=== PATIENT | male | born 1945 | race Caucasian/White ===

== ENCOUNTER 2020-08-30 02:53 | Emergency (ER) | payer MEDICARE, OTHER ==
[~2020-08-30] VITALS: Ht 182.9 cm; Wt 88.5 kg
[2020-08-30] MEDS ORDERED: ATOR20 PO (03:08)
[2020-08-30] MEDS ORDERED: EUTHYROX125 MCG PO (03:09)
[2020-08-30] MEDS ORDERED: Prinivil10 MG PO (03:09)
[2020-08-30] MEDS ORDERED: HYDCHL25 PO (03:10)
[2020-08-30 03:34] LABS: BASOPHILS ABSOLUTE AUTO 0.07 K/mm3 (0.00-0.23); BASOPHILS PERCENT AUTO 1 % (0-2); EOSINOPHILS PERCENT AUTO 6 % (0-6); Hematocrit 46.5 % (37.0-53.0); Hemoglobin 15.4 g/dL (13.5-17.5); IMMATURE GRAN ABSOLUTE AUTO 0.09 K/mm3 (0.00-0.10); IMMATURE GRAN PERCENT AUTO 1 % (0-1); LYMPHOCYTES ABSOLUTE AUTO 1.17 K/mm3 (0.84-5.20); LYMPHOCYTES PERCENT AUTO 18 % (21-46); MONOCYTES ABSOLUTE AUTO 0.83 K/mm3 (0.16-1.47); MONOCYTES PERCENT AUTO 13 % (4-13); Mean Corpuscular HGB 32.4 pg (26.0-34.0); Mean Corpuscular HGB Conc 33.1 g/dL (31.5-36.5); Mean Corpuscular Volume 98 fL (80-100); NEUTROPHILS PERCENT AUTO 60 % (41-73); Platelet Count 131 K/mm3 (150-400); RDW Coefficient Variation 12.7 % (11.7-14.2); RDW Standard Deviation 45.5 fL (35.1-46.3); Red Blood Cell Count 4.75 M/mm3 (4.30-5.90); White Blood Cell Count 6.36 K/mm3 (4.00-11.30)
[2020-08-30 03:54] LABS: Alanine Aminotransfer (ALT/SGP 33 U/L (12-78); Albumin/Globulin Ratio 1.4 (0.8-1.8); Alk Phos 93 U/L (50-136); Anion Gap 5 mmol/L (6-16); Aspartate Aminotrans (AST/SGOT 18 U/L (12-37); Bilirubin, Total 0.4 mg/dL (0.1-1.0); Blood Urea Nitrogen 20 mg/dL (8-24); Bun/Creatinine Ratio 17.2 (12.0-20.0); CO2, Blood 27 mmol/L (21-32); Calcium, Blood 9.2 mg/dL (8.5-10.1); Chloride, Blood 108 mmol/L (98-108); Creatinine, Blood 1.16 mg/dL (0.60-1.20); Globulin, Blood 2.8 g/dL (2.2-4.0); Glomerular Filtration Rate >60 (60-); Glucose, Blood 120 mg/dL (70-99); Sodium, Blood 140 mmol/L (136-145); Total Protein, Blood 6.8 g/dL (6.4-8.2); Troponin I <0.015 ng/mL (0.000-0.040)
== END 2020-08-30 04:11 | disposition home or self-care (01) ==
LOC: ER 02:53
PROVIDERS: Emergency Medicine
DX: R55 Syncope and collapse (principal); S00.83XA Contusion of other part of head, initial encounter; S50.811A Abrasion of right forearm, initial encounter; I10 Essential (primary) hypertension; Z79.899 Other long term (current) drug therapy; X58.XXXA Exposure to other specified factors, initial encounter
CPT/HCPCS: 36415; 80053; 84484; 85025; 93005; 93010; J7030

== ENCOUNTER → 2020-09-03 | Outpatient (CLI) | payer MEDICARE, OTHER ==
[~2020-09-03] MED LIST: ATOR20 PO; EUTHYROX125 MCG PO; HYDCHL25 PO; Prinivil10 MG PO
== END ==
LOC: LAB SHORT 11:45
DX: L57.0 Actinic keratosis (principal)
CPT/HCPCS: 88305; 88342

== ENCOUNTER 2022-02-11 20:15 | Emergency (ER) | payer MEDICARE, OTHER ==
[~2022-02-11] VITALS: Ht 182.9 cm; Wt 88.5 kg
== END 2022-02-11 21:12 | disposition home or self-care (01) ==
LOC: ER 20:15
DX: M62.89 Other specified disorders of muscle (principal); I10 Essential (primary) hypertension; E78.5 Hyperlipidemia, unspecified
CPT/HCPCS: 99283

== ENCOUNTER 2022-04-14 06:17 | Day surgery (SDC) | payer MEDICARE, OTHER ==
[~2022-04-14] VITALS: Ht 182.9 cm; Wt 90.0 kg
[~2022-04-14 06:17] MED LIST changes: +ASPI81CH PO
--- NOTE | 2022-04-14 08:04 | NUR ---
PT AND S/O VERBALIZES UNDERSTANDING WRITTEN AND VERBAL INSTRUCTIONS. VSS. NADN. PT IV DC'D. CATH INTACT. PRESSURE DSXG APPLIED. NO BLEEDING NOTED. PT WILL DC TO HOME VIA S/O
== END 2022-04-14 22:38 | disposition home or self-care (01) ==
LOC: MHTC 06:17 → ORD 07:00 → MHTC 22:38
DX: I63.9 Cerebral infarction, unspecified (principal); I35.1 Nonrheumatic aortic (valve) insufficiency
CPT/HCPCS: 93312; 93325; A9270; J2704; J7030

== ENCOUNTER 2025-05-17 10:28 | Day surgery (SDC) | payer OTHER ==
[2025-05-17] VITALS (10 sets, daily range): BP systolic 107–145; BP diastolic 63–93
[~2025-05-17] VITALS: Ht 180.3 cm; Wt 79.3 kg
[~2025-05-17 10:28] MED LIST changes: +ATOR10 PO; -ATOR20 PO; +Acetaminophen325 M1 PO; +DECADRON4 M1 PO; +FOLI1 PO; +LEVETIRACETAM1000 M1 PO; +MELA3 PO; +ONDA8 PO; +PANT20 PO
[2025-05-17] MEDS ORDERED: CeFAZolin Sodium 2,000 MG in NS 100 ML IV SCH (11:05)
--- NOTE | 2025-05-17 11:31 | NUR ---
Ambulatory in Day SurgeryPre-Op teaching done. Pt verbalizes understanding. History, Chart, Medications and Allergies reviewed before start of procedure.Patient confirms NPO status and agrees with scheduled surgery. Patient States Post-Procedure ride home has been arranged. Patient reports completing Chlorhexadine shower X2 prior to admission to hospital.
[2025-05-17] MEDS ORDERED: LISI20 (11:39)
[2025-05-17] MEDS ORDERED: HYDCHL50 (11:39)
[2025-05-17] MEDS ORDERED: Ondansetron HCl 2 MG / ML 2ML Vial ONE (12:33)
[2025-05-17] MEDS ORDERED: Dexamethasone Sod Phos 10 MG/ML 1ML VIAL ONE (12:33)
[2025-05-17] MEDS ORDERED: FentaNYL Citrate 50 MCG/ML 2 ML Injection ONE (12:33)
[2025-05-17] MEDS ORDERED: FentaNYL Citrate 50 MCG/ML 2 ML Injection IV PRN ×3 (12:55)
[2025-05-17] MEDS ORDERED: Ondansetron HCl 2 MG / ML 2ML Vial IV PRN (13:00)
[2025-05-17] MEDS ORDERED: HYDROcodone 5-APAP 325 TAB PO PRN (13:25)
--- NOTE | 2025-05-17 14:31 | NUR ---
DISCHARGE NOTE PT A&OX4, BREATHING RA, TOLERATING PO INTAKE, NO COMPLAINTS. Patient up to Ambulate independently. Gait steady. PT TO BR AND VOIDED. Discharge instructions reviewed with patient. Patient verbalizes understanding. Copy given to patient to take home. Dressing to procedure site clean, dry, intact with no visible drainage, swelling, erythema or bruising noted. Discharged via wheelchair to private car for ride home.
== END 2025-05-17 14:25 | disposition home or self-care (01) ==
LOC: ORSCMMR 10:28
PROVIDERS: Surgery
PROC: 0JH63WZ Insertion of Totally Implantable Vascular Access Device into Chest Subcutaneous Tissue and Fascia, Percutaneous Approach (ICD-10-PCS; principal; 2025-05-17 11:30)
DX: C34.90 Malignant neoplasm of unspecified part of unspecified bronchus or lung (principal); I10 Essential (primary) hypertension; E03.9 Hypothyroidism, unspecified; Z79.899 Other long term (current) drug therapy
CPT/HCPCS: 77001; C1788; J0690; J1100; J1642; J2405; J2704; J3010; J7120

== ENCOUNTER 2025-05-28 08:31 | Emergency (ER) | payer OTHER ==
[~2025-05-28] VITALS: Ht 180.3 cm; Wt 80.3 kg
[~2025-05-28 08:31] MED LIST changes: +HYDCHL50; +LISI20
[2025-05-28] MEDS ORDERED: LISI20 PO (09:06)
[2025-05-28 09:32] LABS: Hematocrit 36.5 % (37.0-53.0); Hemoglobin 12.7 g/dL (13.5-17.5); Mean Corpuscular HGB Conc 34.8 g/dL (31.5-36.5); Mean Corpuscular Volume 92 fL (80-100); NRBC ABSOLUTE 0.00 K/mm3 (0.00-0.02); NRBC Auto 0.0 /100 WBC (0.0-0.2); RDW Coefficient Variation 12.9 % (11.7-14.2); RDW Standard Deviation 43.8 fL (35.1-46.3)
[2025-05-28 09:36] LABS: Platelet Count 49 K/mm3 (150-400)
[2025-05-28 09:44] LABS: Alanine Aminotransfer (ALT/SGP 57.0 U/L (12-78); Albumin, Blood 3.2 g/dL (3.4-5.0); Albumin/Globulin Ratio 1.2 (0.8-1.8); Anion Gap 9.0 mmol/L (3-11); Aspartate Aminotrans (AST/SGOT 19.0 U/L (12-37); Bilirubin, Total 0.7 mg/dL (0.1-1.0); Blood Urea Nitrogen 30.0 mg/dL (8-24); CO2, Blood 25.0 mmol/L (21-32); Calcium, Blood 8.9 mg/dL (8.5-10.1); Chloride, Blood 101.0 mmol/L (98-108); Creatinine, Blood 0.77 mg/dL (0.60-1.20); Globulin, Blood 2.7 g/dL (2.2-4.0); Glucose, Blood 170.0 mg/dL (70-99); Magnesium, Blood 1.8 mg/dL (1.6-2.4); Phosphorus, Blood 2.9 mg/dL (2.5-4.9); Potassium, Blood 4.3 mmol/L (3.5-5.5); Sodium, Blood 131.0 mmol/L (136-145); Total Protein, Blood 5.9 g/dL (6.4-8.2)
[2025-05-28] MEDS ORDERED: Ipratropium/Albuterol SulF 2.5-0.5MG/3 ML Amp INH ONE (09:45)
[2025-05-28 10:02] LABS: Influenza A, PCR NEGATIVE (NEGATIVE); Influenza B, PCR NEGATIVE (NEGATIVE); Resp Syncytial Virus, PCR NEGATIVE (NEGATIVE); SARS-Cov-2 (COVID-19) PCR, MMC NEGATIVE (NEGATIVE)
[2025-05-28 10:15] LABS: BAND PERCENT MAN 11 % (0-8); BASOPHILS ABSOLUTE MAN 0.00 K/mm3 (0.00-0.23); BASOPHILS PERCENT MAN 0 % (0-2); EOSINOPHILS ABSOLUTE MAN 0.02 K/mm3 (0.00-0.68); EOSINOPHILS PERCENT MAN 1 % (0-6); LYMPHOCYTES ABSOLUTE MAN 0.48 K/mm3 (0.84-5.20); LYMPHOCYTES PERCENT MAN 21 % (21-46); MONOCYTES ABSOLUTE MAN 0.06 K/mm3 (0.16-1.47); MONOCYTES PERCENT MAN 3 % (4-13); NEUTROPHILS ABSOLUTE MAN 1.74 K/mm3 (1.96-9.15); SEG NEUTROPHILS PERCENT MAN 64 % (41-73)
[2025-05-28 11:00] VITALS: BP 102/68
[2025-05-28] MEDS ORDERED: Zithromax Tri-500 MG PO (11:10)
[2025-05-28] MEDS ORDERED: ALBU90OI INH (11:10)
== END 2025-05-28 11:22 | disposition home or self-care (01) ==
LOC: ER 08:31
PROVIDERS: Student in an Organized Health Care Education/Training Program
DX: J20.9 Acute bronchitis, unspecified (principal); J06.9 Acute upper respiratory infection, unspecified; I10 Essential (primary) hypertension; E78.5 Hyperlipidemia, unspecified; Z79.899 Other long term (current) drug therapy
CPT/HCPCS: 71046; 80053; 83735; 84100; 85025; 87637; 93005; 93010; 96374; 99284-25; A9270; J2919

== ENCOUNTER 2025-06-12 15:16 | Inpatient (IN) | payer OTHER ==
[~2025-06-12] VITALS: Ht 180.3 cm; Wt 82.7 kg
[~2025-06-12 15:16] MED LIST changes: +ALBU90OI INH; -EUTHYROX125 MCG PO; -HYDCHL25 PO; +LEVSOD150 PO; +LISI20 PO; +Zithromax Tri-500 MG PO
[2025-06-12] MEDS ORDERED: NS 1,000 ML IV SCH ×2 (15:35→21:00)
[2025-06-12 15:55] LABS: Hematocrit 30.6 % (37.0-53.0); Hemoglobin 10.9 g/dL (13.5-17.5); Mean Corpuscular HGB Conc 35.6 g/dL (31.5-36.5); Mean Corpuscular Volume 93 fL (80-100); NRBC ABSOLUTE 0.02 K/mm3 (0.00-0.02); NRBC Auto 0.3 /100 WBC (0.0-0.2); Platelet Count 86 K/mm3 (150-400); RDW Coefficient Variation 14.4 % (11.7-14.2); RDW Standard Deviation 47.9 fL (35.1-46.3)
[2025-06-12 16:13] LABS: Magnesium, Blood 2.2 mg/dL (1.6-2.4)
[2025-06-12 16:14] LABS: Alanine Aminotransfer (ALT/SGP 47.0 U/L (12-78); Albumin, Blood 2.9 g/dL (3.4-5.0); Albumin/Globulin Ratio 0.9 (0.8-1.8); Anion Gap 10.0 mmol/L (3-11); Aspartate Aminotrans (AST/SGOT 24.0 U/L (12-37); Bilirubin, Total 1.3 mg/dL (0.1-1.0); Blood Urea Nitrogen 45.0 mg/dL (8-24); CO2, Blood 27.0 mmol/L (21-32); Calcium, Blood 9.0 mg/dL (8.5-10.1); Chloride, Blood 102.0 mmol/L (98-108); Creatinine, Blood 1.33 mg/dL (0.60-1.20); Globulin, Blood 3.3 g/dL (2.2-4.0); Glucose, Blood 124.0 mg/dL (70-99); Potassium, Blood 4.6 mmol/L (3.5-5.5); Sodium, Blood 134.0 mmol/L (136-145); Total Protein, Blood 6.2 g/dL (6.4-8.2)
[2025-06-12 16:21] LABS: EOSINOPHILS ABSOLUTE MAN 0.00 K/mm3 (0.00-0.68); EOSINOPHILS PERCENT MAN 0 % (0-6)
[2025-06-12 16:23] LABS: BAND PERCENT MAN 20 % (0-8); BASOPHILS ABSOLUTE MAN 0.00 K/mm3 (0.00-0.23); BASOPHILS PERCENT MAN 0 % (0-2); LYMPHOCYTES ABSOLUTE MAN 0.73 K/mm3 (0.84-5.20); LYMPHOCYTES PERCENT MAN 12 % (21-46); METAMYELOCYTE ABSOLUTE MAN 0.12 K/mm3 (0.00-0.00); METAMYELOCYTE PERCENT MAN 2 % (0-0); MONOCYTES ABSOLUTE MAN 0.00 K/mm3 (0.16-1.47); MONOCYTES PERCENT MAN 0 % (4-13); MYELOCYTE ABSOLUTE MAN 0.12 K/mm3 (0.00-0.00); MYELOCYTE PERCENT MAN 2 % (0-0); NEUTROPHILS ABSOLUTE MAN 5.13 K/mm3 (1.96-9.15); SEG NEUTROPHILS PERCENT MAN 64 % (41-73)
[2025-06-12 16:54] LABS: Influenza A, PCR NEGATIVE (NEGATIVE); Influenza B, PCR NEGATIVE (NEGATIVE); Resp Syncytial Virus, PCR NEGATIVE (NEGATIVE); SARS-Cov-2 (COVID-19) PCR, MMC NEGATIVE (NEGATIVE)
[2025-06-12 17:13] LABS: Source, Urine Clean Catch
[2025-06-12 17:29] LABS: Bilirubin, Urine Neg (Neg); Color, Urine Amber (P-Yellow); Glucose Qualitative, Urine Neg (Neg); Ketones, Urine Neg (Neg); Leukocyte Esterase, Urine Neg (Neg); Protein, Urine 1+ (Neg); Specific Gravity, Urine 1.015 (1.003-1.022); Urobilinogen, Urine 1+ (Normal)
[2025-06-12] MEDS ORDERED: FLU VACC TS2025(65UP)/MF59C/PF 45 MCG/0.5 ML SYRINGE IM SCH (20:35)
[2025-06-12] MEDS ORDERED: Levothyroxine Sodium 0.15 MG Tab PO SCH (21:00)
[2025-06-12 21:39] VITALS: BP 109/61
[2025-06-13] VITALS (7 sets, daily range): BP systolic 89–120; BP diastolic 51–90
[2025-06-13 00:48] LABS: Stool Occult Blood Guaiac 1 Neg (Neg)
[2025-06-13 05:16] LABS: Hematocrit 25.8 % (37.0-53.0); Hemoglobin 8.9 g/dL (13.5-17.5); Mean Corpuscular HGB Conc 34.5 g/dL (31.5-36.5); Mean Corpuscular Volume 93 fL (80-100); NRBC ABSOLUTE 0.00 K/mm3 (0.00-0.02); NRBC Auto 0.0 /100 WBC (0.0-0.2); Platelet Count 62 K/mm3 (150-400); RDW Coefficient Variation 14.5 % (11.7-14.2); RDW Standard Deviation 48.3 fL (35.1-46.3)
--- NOTE | 2025-06-13 05:31 | NUR ---
SHIFT SUMMARY; AFTER ADMII, PATIENT'S STAYED OVER. GUIACE WAS NEG. PATIENT ACCIDENTLY DISLODGED HIS IV WHEN UP TO BR. INCONT OF BOTH STOOL AND URINE. LOW GRADE TEMP, MEDICATED WITH TYLENOL.
[2025-06-13 05:36] LABS: Anion Gap 8.0 mmol/L (3-11); Blood Urea Nitrogen 29.0 mg/dL (8-24); CO2, Blood 24.0 mmol/L (21-32); Calcium, Blood 8.1 mg/dL (8.5-10.1); Chloride, Blood 107.0 mmol/L (98-108); Creatinine, Blood 1.0 mg/dL (0.60-1.20); Glucose, Blood 140.0 mg/dL (70-99); Potassium, Blood 4.3 mmol/L (3.5-5.5); Sodium, Blood 135.0 mmol/L (136-145)
[2025-06-13 05:56] LABS: BAND PERCENT MAN 1 % (0-8); BASOPHILS ABSOLUTE MAN 0.00 K/mm3 (0.00-0.23); BASOPHILS PERCENT MAN 0 % (0-2); EOSINOPHILS ABSOLUTE MAN 0.00 K/mm3 (0.00-0.68); EOSINOPHILS PERCENT MAN 0 % (0-6); LYMPHOCYTES % ATYPICAL MANUAL 1 % (0-0); LYMPHOCYTES ABSOLUTE MAN 0.29 K/mm3 (0.84-5.20); LYMPHOCYTES PERCENT MAN 8 % (21-46); MONOCYTES ABSOLUTE MAN 0.03 K/mm3 (0.16-1.47); MONOCYTES PERCENT MAN 1 % (4-13); NEUTROPHILS ABSOLUTE MAN 2.93 K/mm3 (1.96-9.15); SEG NEUTROPHILS PERCENT MAN 89 % (41-73)
[2025-06-13] MEDS ORDERED: Albuterol HFA200 ACT/6.7 GM INH INH PRN (06:10)
[2025-06-13] MEDS ORDERED: Enoxaparin 40 MG/0.4 ML SYR SC SCH (09:00)
--- NOTE | 2025-06-13 10:39 | NUR ---
NOTE: NOTIFIED PROVIDER OF PT'S BLOOD PRESSURES THIS AM, SHE SAID TO CONTINUE FLUIDS AND ADD ANOTHER BAG ONCE THESE TWO ARE COMPLETE.
--- NOTE | 2025-06-13 17:39 | NUR ---
SHIFT SUMMARY PT AOX4, SBA WITH THE URINAL. FREQUENCY AND URGENCY WITH URINE, PROVIDER CONTACTED AND NEW MEDICATION PER THE EMAR. BLADDER SCAN OF 214. TEMPERATURE WNL. PT'S BP IMPROVING. AT THE BS. SHE IS VERY INVOLVED IN HIS CARE. POSSIBLE DC TOMORROW. PT REPOSITIONS SELF IN BED. CALL LIGHT WITHIN REACH, BED LOCKED AND IN THE LOWEST POSITION. WILL REPORT TO ONCOMING NURSE.
--- NOTE | 2025-06-14 00:28 | NUR ---
PT VS SPOT CHECKED AROUND MIDNIGHT DUE TO SOFT BP'S AND SPIKING TEMPS. BP WAS 102/90, BUT TEMP WAS 101.4F ORALLY. HOSPITALIST NOTIFIED THAT PT WBC 3.26 YESTERDAY MORNING AND THAT PT HAS HAD LOW GRADE FEVERS YESTERDAY. PT GIVEN 650 MG TYLENOL WITH AN ADDTIONAL 650 MG GIVEN PER MD ORDERS. MD STATED THAT THEY WOULD LOOK AT PT CHART TO SEE IF IV ABX COVERAGE IS NEEDED.
[2025-06-14 04:10] VITALS: BP 100/66
[2025-06-14 04:52] LABS: Hematocrit 22.7 % (37.0-53.0); Hemoglobin 7.8 g/dL (13.5-17.5); Mean Corpuscular HGB Conc 34.4 g/dL (31.5-36.5); Mean Corpuscular Volume 94 fL (80-100); NRBC ABSOLUTE 0.00 K/mm3 (0.00-0.02); NRBC Auto 0.0 /100 WBC (0.0-0.2); Platelet Count 52 K/mm3 (150-400); RDW Coefficient Variation 14.6 % (11.7-14.2); RDW Standard Deviation 48.5 fL (35.1-46.3)
[2025-06-14 05:10] LABS: Anion Gap 7.0 mmol/L (3-11); Blood Urea Nitrogen 22.0 mg/dL (8-24); CO2, Blood 25.0 mmol/L (21-32); Calcium, Blood 8.0 mg/dL (8.5-10.1); Chloride, Blood 108.0 mmol/L (98-108); Creatinine, Blood 0.84 mg/dL (0.60-1.20); Glucose, Blood 121.0 mg/dL (70-99); Potassium, Blood 4.1 mmol/L (3.5-5.5); Sodium, Blood 136.0 mmol/L (136-145)
--- NOTE | 2025-06-14 05:10 | NUR ---
SHIFT SUMMARY NOC PT A/O X 4. PLEASANT AND COOPERATIVE WITH CARE. BP IMPROVED LAST TWO 102/90, AND 100/66 . NON ACCESSED MEDIPORT IN RUW. PT HGB 7.8 THIS AM AFTER RECEIVING 4L IVF YESTERDAY. PT HAD TEMP 101.4F AND GIVEN 1300 MG TYLENOL WHICH DECREASED TEMP TO 98.4F. PT STARTED DITROPAN LAST NIGHT. PT SPOUSE STAYED NIGHT WITH PT IN ROOM. PT CURRENTLY RESTING WITH BED IN LOWEST POSITION, AND CALL LIGHT WITHIN REACH.
[2025-06-14 05:31] LABS: BAND PERCENT MAN 5 % (0-8); BASOPHILS ABSOLUTE MAN 0.00 K/mm3 (0.00-0.23); BASOPHILS PERCENT MAN 0 % (0-2); EOSINOPHILS ABSOLUTE MAN 0.02 K/mm3 (0.00-0.68); EOSINOPHILS PERCENT MAN 2 % (0-6); LYMPHOCYTES ABSOLUTE MAN 0.30 K/mm3 (0.84-5.20); LYMPHOCYTES PERCENT MAN 25 % (21-46); MONOCYTES ABSOLUTE MAN 0.13 K/mm3 (0.16-1.47); MONOCYTES PERCENT MAN 11 % (4-13); NEUTROPHILS ABSOLUTE MAN 0.76 K/mm3 (1.96-9.15); SEG NEUTROPHILS PERCENT MAN 57 % (41-73)
[2025-06-14 07:49] VITALS: BP 110/60
--- NOTE | 2025-06-14 09:54 | NUR ---
Spiritual Care Visit. Pt. is awake in bed. Spouse and druze friends are at bedside and welcome my visit. Pt. displays evidence of good color and is also welcoming. All present at bedside are known to this cigarette vendor from the community. Facilitate an update. Listen with empathy and a calming presence. Consider matters of donaldo and belief and give encouragement and pastoral care. Pt. displays evidence of understanding and agreement. Prayed with the Pt. Pt. and spouse vebralized gratitude for the spiritual care visit and welcomed this cigarette vendor to return.
[2025-06-14] MEDS ORDERED: Ipratropium/Albuterol SulF 2.5-0.5MG/3 ML Amp INH SCH (12:15)
[2025-06-14] MEDS ORDERED: HYDCHL12.5 PO (13:31)
--- NOTE | 2025-06-14 14:35 | NUR ---
Spiritual Care - family follow up No other visitors are present when I re-visit the family. Pt. verbalizes his primary health concern as stage 4 cancer. Spouse is present, but is otherwise alone. Facilitated a lengthy life review and listened with interest and empathy. Ptt. displays evidence of bearing the weight of his diagnosis. When Pt. excused himself to the restroom this regional program manager focused upon the spouse. SPouse verbalized that they are trying to make it to their 40th anniversay on Jul.02. Pastoral care and encouragement is given. Pts. nurse came to bedside. Family verbalized gratitude for the extra time given to the Pt.
[2025-06-14 15:01] VITALS: BP 111/64
[2025-06-14] MEDS ORDERED: Acetaminophen325 M1 PO (16:46)
[2025-06-14] MEDS ORDERED: AMOCLA875 PO (16:47)
[2025-06-14] MEDS ORDERED: CIPR750 PO (16:49)
[2025-06-14] MEDS ORDERED: CLOT10 MT (16:50)
[2025-06-14] MEDS ORDERED: FAMO20 PO (16:50)
[2025-06-14] MEDS ORDERED: IPRAT-ALBUT 0.5-3 ML INH (16:52)
[2025-06-14] MEDS ORDERED: OXYB5 PO (16:52)
[2025-06-14] MEDS ORDERED: VISBIOME 112.51 EACH PO (16:53)
--- NOTE | 2025-06-14 18:17 | NUR ---
PATIENT DISCHARGED HOME WITH SPOUSE AT 1730. IV TO RAC REMOVED WITH TIP INTACT AND SITE WITHOUT SWELLING OR REDNESS. ALL EDUCATION/INSTRUCTIONS DISCUSSED WITH PATIENT AND SPOUSE AND NEW PRESCREPTIONS FAXED TO [facility] PER PATIENT PREFERENCE. PATIENT TRANSPORTED VIA WHEELCHAIR TO ENTRANCE WITH BELONGINGS IN POSSESSION.
== END 2025-06-14 17:29 | disposition home health service (06) | DRG 683 ==
LOC: ER 15:16 → MEDS 15:17
PROVIDERS: Emergency Medicine; Internal Medicine; ADMIT Hospitalist
DX: N17.9 Acute kidney failure, unspecified (principal); B37.0 Candidal stomatitis; C34.90 Malignant neoplasm of unspecified part of unspecified bronchus or lung; D61.818 Other pancytopenia; D70.9 Neutropenia, unspecified; R50.81 Fever presenting with conditions classified elsewhere; E86.0 Dehydration; I10 Essential (primary) hypertension; E78.5 Hyperlipidemia, unspecified; E89.0 Postprocedural hypothyroidism; Z87.891 Personal history of nicotine dependence; Z79.890 Hormone replacement therapy; Z79.899 Other long term (current) drug therapy
CPT/HCPCS: 36415; 71045; 71046; 80048; 80053; 82270; 83605; 83735; 85025; 87637; 93005; 93010; 94640; 94664; 94760; 96360; 96361; 97110; 97161; 97530; 99285-25; A9270; G0378; J7030

== ENCOUNTER 2025-06-21 02:45 | Day surgery (SDC) | payer OTHER ==
[2025-06-19 10:15] LABS: BASOPHILS ABSOLUTE AUTO 0.05 K/mm3 (0.00-0.23); BASOPHILS PERCENT AUTO 1 % (0-2); Hematocrit 22.8 % (37.0-53.0); Hemoglobin 7.9 g/dL (13.5-17.5); LYMPHOCYTES ABSOLUTE AUTO 0.46 K/mm3 (0.84-5.20); LYMPHOCYTES PERCENT AUTO 7 % (21-46); MONOCYTES ABSOLUTE AUTO 0.50 K/mm3 (0.16-1.47); MONOCYTES PERCENT AUTO 7 % (4-13); Mean Corpuscular HGB Conc 34.6 g/dL (31.5-36.5); Mean Corpuscular Volume 94 fL (80-100); NRBC ABSOLUTE 0.10 K/mm3 (0.00-0.02); NRBC Auto 1.4 /100 WBC (0.0-0.2); Platelet Count 62 K/mm3 (150-400); RDW Coefficient Variation 14.4 % (11.7-14.2); RDW Standard Deviation 48.7 fL (35.1-46.3)
[2025-06-19 10:16] LABS: EOSINOPHILS ABSOLUTE AUTO 0.01 K/mm3 (0.00-0.68); EOSINOPHILS PERCENT AUTO 0 % (0-6); IMMATURE GRAN ABSOLUTE AUTO 2.07 K/mm3 (0.00-0.10); IMMATURE GRAN PERCENT AUTO 29 % (0-1); NEUTROPHILS ABSOLUTE AUTO 3.99 K/mm3 (1.96-9.15); NEUTROPHILS PERCENT AUTO 56 % (41-73)
[2025-06-19 10:35] LABS: Alanine Aminotransfer (ALT/SGP 81.0 U/L (12-78); Albumin, Blood 2.4 g/dL (3.4-5.0); Albumin/Globulin Ratio 0.7 (0.8-1.8); Anion Gap 11.0 mmol/L (3-11); Aspartate Aminotrans (AST/SGOT 60.0 U/L (12-37); Bilirubin, Total 0.4 mg/dL (0.1-1.0); Blood Urea Nitrogen 13.0 mg/dL (8-24); CO2, Blood 24.0 mmol/L (21-32); Calcium, Blood 9.0 mg/dL (8.5-10.1); Chloride, Blood 102.0 mmol/L (98-108); Creatinine, Blood 0.91 mg/dL (0.60-1.20); Globulin, Blood 3.6 g/dL (2.2-4.0); Glucose, Blood 125.0 mg/dL (70-99); Potassium, Blood 3.5 mmol/L (3.5-5.5); Sodium, Blood 133.0 mmol/L (136-145); Thyroid Stimulating Hormone 3.99 uIU/mL (0.360-4.800); Total Protein, Blood 6.0 g/dL (6.4-8.2)
[2025-06-19 10:38] LABS: BAND PERCENT MAN 9 % (0-8); BASOPHILS ABSOLUTE MAN 0.00 K/mm3 (0.00-0.23); BASOPHILS PERCENT MAN 0 % (0-2); BLASTS PERCENT MAN 1 % (0-0); EOSINOPHILS ABSOLUTE MAN 0.00 K/mm3 (0.00-0.68); EOSINOPHILS PERCENT MAN 0 % (0-6); LYMPHOCYTES % ATYPICAL MANUAL 1 % (0-0); LYMPHOCYTES ABSOLUTE MAN 1.13 K/mm3 (0.84-5.20); LYMPHOCYTES PERCENT MAN 15 % (21-46); METAMYELOCYTE ABSOLUTE MAN 1.06 K/mm3 (0.00-0.00); METAMYELOCYTE PERCENT MAN 15 % (0-0); MONOCYTES ABSOLUTE MAN 0.21 K/mm3 (0.16-1.47); MONOCYTES PERCENT MAN 3 % (4-13); MYELOCYTE ABSOLUTE MAN 0.49 K/mm3 (0.00-0.00); MYELOCYTE PERCENT MAN 7 % (0-0); NEUTROPHILS ABSOLUTE MAN 3.89 K/mm3 (1.96-9.15); PROMYELOCYTE ABSOLUTE MAN 0.21 K/mm3 (0.00-0.00); PROMYELOCYTE PERCENT MAN 3 % (0-0); SEG NEUTROPHILS PERCENT MAN 46 % (41-73)
[~2025-06-21 02:45] MED LIST changes: +AMOCLA875 PO; +CIPR750 PO; +CLOT10 MT; +FAMO20 PO; +HYDCHL12.5 PO; +IPRAT-ALBUT 0.5-3 ML INH; +OXYB5 PO; +VISBIOME 112.51 EACH PO
[2025-06-21] MEDS ORDERED: NS 250 ML IV SCH (15:00)
[2025-06-21 16:10] VITALS: BP 115/62
[2025-06-21 16:30] VITALS: BP 105/62
[2025-06-21 17:41] VITALS: BP 114/66
[2025-06-21 18:04] VITALS: BP 112/71
== END 2025-06-21 18:08 | disposition home or self-care (01) ==
LOC: ATC 02:45
PROVIDERS: Internal Medicine Hematology & Oncology
DX: C34.11 Malignant neoplasm of upper lobe, right bronchus or lung (principal); C79.31 Secondary malignant neoplasm of brain; C77.0 Secondary and unspecified malignant neoplasm of lymph nodes of head, face and neck; I10 Essential (primary) hypertension; E03.9 Hypothyroidism, unspecified; K21.9 Gastro-esophageal reflux disease without esophagitis; Z87.891 Personal history of nicotine dependence; Z79.890 Hormone replacement therapy; Z79.899 Other long term (current) drug therapy
CPT/HCPCS: 36415; 36430; 80053; 82378; 84443; 85025; 86850; 86900; 86901; 86923; J7050; P9016

== ENCOUNTER 2025-07-07 15:19 | Observation (INO) | payer OTHER ==
[~2025-07-07] VITALS: Ht 180.3 cm; Wt 81.8 kg
--- NOTE | 2025-07-07 16:01 | NUR ---
Pt. is in ED9 when he welcomes my visit. I assist getting the spouse to bedside. Facilitated an update as Pt. and spouse are known to this body presser from a previous stay and from the community. The Pt. and spouse verbalize about their anniversary trip to [place] that took place over the weekend. Spouse verbalized that the Pt. has been getting weaker since they have returned. Pt. and spouse verbalize about the current pause in the Pts. cancer regimine. Prayed with the Pt. Pt. and spouse requested that this body presser contact their anabaptist, and verbalized gratitude for the spiritual care visit.
[2025-07-07 18:15] LABS: BASOPHILS ABSOLUTE AUTO 0.21 K/mm3 (0.00-0.23); BASOPHILS PERCENT AUTO 1 % (0-2); EOSINOPHILS ABSOLUTE AUTO 0.02 K/mm3 (0.00-0.68); EOSINOPHILS PERCENT AUTO 0 % (0-6); Hematocrit 30.6 % (37.0-53.0); Hemoglobin 10.1 g/dL (13.5-17.5); IMMATURE GRAN ABSOLUTE AUTO 0.74 K/mm3 (0.00-0.10); IMMATURE GRAN PERCENT AUTO 5 % (0-1); LYMPHOCYTES ABSOLUTE AUTO 1.68 K/mm3 (0.84-5.20); LYMPHOCYTES PERCENT AUTO 11 % (21-46); MONOCYTES ABSOLUTE AUTO 2.61 K/mm3 (0.16-1.47); MONOCYTES PERCENT AUTO 18 % (4-13); Mean Corpuscular HGB Conc 33.0 g/dL (31.5-36.5); Mean Corpuscular Volume 96 fL (80-100); NEUTROPHILS ABSOLUTE AUTO 9.55 K/mm3 (1.96-9.15); NEUTROPHILS PERCENT AUTO 65 % (41-73); NRBC ABSOLUTE 0.00 K/mm3 (0.00-0.02); NRBC Auto 0.0 /100 WBC (0.0-0.2); Platelet Count 289 K/mm3 (150-400); RDW Coefficient Variation 17.2 % (11.7-14.2); RDW Standard Deviation 61.1 fL (35.1-46.3)
[2025-07-07 18:30] LABS: Alanine Aminotransfer (ALT/SGP 16.0 U/L (12-78); Albumin, Blood 2.6 g/dL (3.4-5.0); Albumin/Globulin Ratio 0.6 (0.8-1.8); Anion Gap 8.0 mmol/L (3-11); Aspartate Aminotrans (AST/SGOT 17.0 U/L (12-37); Bilirubin, Total 0.7 mg/dL (0.1-1.0); Blood Urea Nitrogen 16.0 mg/dL (8-24); CO2, Blood 26.0 mmol/L (21-32); Calcium, Blood 9.6 mg/dL (8.5-10.1); Chloride, Blood 102.0 mmol/L (98-108); Creatinine, Blood 0.78 mg/dL (0.60-1.20); Globulin, Blood 4.0 g/dL (2.2-4.0); Glucose, Blood 122.0 mg/dL (70-99); Potassium, Blood 4.1 mmol/L (3.5-5.5); Sodium, Blood 132.0 mmol/L (136-145); Total Protein, Blood 6.6 g/dL (6.4-8.2)
[2025-07-07] MEDS ORDERED: CefTRIAXone Sodium 2,000 MG in NS 100 ML IV ONE (18:50)
[2025-07-07] MEDS ORDERED: NS 1,000 ML IV SCH (19:10)
[2025-07-07] MEDS ORDERED: Ondansetron HCl 2 MG / ML 2ML Vial IV PRN (19:10)
[2025-07-07] MEDS ORDERED: FentaNYL Citrate 50 MCG/ML 2 ML Injection IV PRN (19:10)
[2025-07-07] MEDS ORDERED: FLU VACC TS2025(65UP)/MF59C/PF 45 MCG/0.5 ML SYRINGE IM SCH (19:15)
[2025-07-07] MEDS ORDERED: ALBU90OI INH (20:44)
[2025-07-07] MEDS ORDERED: LACT PO (20:45)
[2025-07-07] MEDS ORDERED: ACET325 PO (20:46)
[2025-07-07 21:24] VITALS: BP 119/69
[2025-07-07] MEDS ORDERED: Levothyroxine Sodium 0.15 MG Tab PO SCH (23:32)
[2025-07-08 00:40] VITALS: BP 132/73
[2025-07-08] MEDS ORDERED: Albuterol 2.5 MG/3 ML VIAL INH PRN (02:20)
[2025-07-08 04:53] VITALS: BP 124/66
[2025-07-08 05:05] LABS: BASOPHILS ABSOLUTE AUTO 0.13 K/mm3 (0.00-0.23); BASOPHILS PERCENT AUTO 1 % (0-2); EOSINOPHILS ABSOLUTE AUTO 0.01 K/mm3 (0.00-0.68); EOSINOPHILS PERCENT AUTO 0 % (0-6); Hematocrit 28.2 % (37.0-53.0); Hemoglobin 9.1 g/dL (13.5-17.5); IMMATURE GRAN ABSOLUTE AUTO 0.65 K/mm3 (0.00-0.10); IMMATURE GRAN PERCENT AUTO 5 % (0-1); LYMPHOCYTES ABSOLUTE AUTO 0.92 K/mm3 (0.84-5.20); LYMPHOCYTES PERCENT AUTO 7 % (21-46); MONOCYTES ABSOLUTE AUTO 2.12 K/mm3 (0.16-1.47); MONOCYTES PERCENT AUTO 15 % (4-13); Mean Corpuscular HGB Conc 32.3 g/dL (31.5-36.5); Mean Corpuscular Volume 97 fL (80-100); NEUTROPHILS ABSOLUTE AUTO 10.24 K/mm3 (1.96-9.15); NEUTROPHILS PERCENT AUTO 73 % (41-73); NRBC ABSOLUTE 0.00 K/mm3 (0.00-0.02); NRBC Auto 0.0 /100 WBC (0.0-0.2); Platelet Count 244 K/mm3 (150-400); RDW Coefficient Variation 17.3 % (11.7-14.2); RDW Standard Deviation 61.1 fL (35.1-46.3)
[2025-07-08 05:44] LABS: Alanine Aminotransfer (ALT/SGP 13.0 U/L (12-78); Albumin, Blood 2.2 g/dL (3.4-5.0); Albumin/Globulin Ratio 0.6 (0.8-1.8); Anion Gap 11.0 mmol/L (3-11); Aspartate Aminotrans (AST/SGOT 15.0 U/L (12-37); Bilirubin, Total 0.5 mg/dL (0.1-1.0); Blood Urea Nitrogen 15.0 mg/dL (8-24); CO2, Blood 22.0 mmol/L (21-32); Calcium, Blood 9.0 mg/dL (8.5-10.1); Chloride, Blood 105.0 mmol/L (98-108); Creatinine, Blood 0.72 mg/dL (0.60-1.20); Globulin, Blood 3.8 g/dL (2.2-4.0); Glucose, Blood 131.0 mg/dL (70-99); Potassium, Blood 3.7 mmol/L (3.5-5.5); Sodium, Blood 134.0 mmol/L (136-145); Total Protein, Blood 6.0 g/dL (6.4-8.2)
--- NOTE | 2025-07-08 07:25 | NUR ---
ADMIT NOTE/GUM ROLLING MACHINE OPERATOR SUMMARY PT ADMIT FROM ED FOR PNEUMONIA. PT A&OX4, VSS. ABLE TO COMMUNICATE NEEDS APPROPRAITELY. ORIENTED TO ROOM, CALL LIGHT, SAFETY AND FALL PRECAUTIONS. PT HAS BEEN ASLEEP FOR MOST OF THE SHIFT SINCE ARRIVAL ONTO UNIT. CHEST RISE/RESPIRATIONS NOTED. ON TELE. SR AT 80 W/ 1ST DEG AV BLOCK. IV RAC WNL. MEDIPORT ON R CHEST NOT ACCESSED. REMAINS NPO PER ORDER. BED RAILS UP X 2, BED IN LOWEST POSITION, BED WHEELS LOCKED, PERSONAL BELONGINGS AND CALL LIGHT WITHIN REACH FOR SAFETY.
[2025-07-08 08:10] VITALS: BP 116/62
--- NOTE | 2025-07-08 08:44 | NUR ---
PALLIATIVE CARE NOTE: CONSULT RECEIVED FOR ADVANCED CARE PLANNING AND SYMPTOM MANAGEMENT. REVIEWED MEDICAL RECORD. PT HAS NO POLST OR AD ON FILE. POLST THROUGH [facility] ON FILE. STATES CPR FULL MEASURES. PRINTED COPY. WILL VERIFY WITH PT AND PLACE ON FILE IF APPROPRIATE. 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
[2025-07-08] MEDS ORDERED: Enoxaparin 40 MG/0.4 ML SYR SC SCH (09:00)
--- NOTE | 2025-07-08 14:43 | NUR ---
PALLIATIVE CARE VISIT: MET WITH PT IN HIS ROOM AT 1215. IS PRESENT. PT AND IS AGREEABLE TO VISIT. WE DISCUSSED AD/POLST, GOC AND SYMPTOM MANAGEMENT. GOC: PT WISHES TO REMAIN A FULL CODE. HE [facility] COM[facility] POL[facility] AND [facility]. HE IS A . HE DOES WANT TO GET WELL SO HE CAN RESUME HIS CANCER TREATMENT. HE HAS TAKEN A BREAK FOR A COUPLE OF WEEKS DUE TO ANEMIA AND INFECTION TO HIS FEET. SYMPTOMS: PT STATES HE HAS NO PAIN ACCEPT TO HIS FEET WHICH ONLY FLARES WHEN HE AMBULATES. PT STATES HE HAS NO SOB, HE IS ON RA. DENIES CONSTIPATION, ANXIETY, DECREASED APPETITE. HE HAS ONLY LOST 5 LBS SINCE CANCER DIAGNOSIS. HE DOES DRINK MUSCLE MILK FOR EXTRA PROTEIN. ENCOURAGED HIM TO SEEK OUT ENTRY LEVEL MARKETING REPRESENTATIVE SERVICES THROUGH THE [facility]. PT DENIES ANXIETY, DEPRESSION. CONCERNS BROUGHT FORTH BY SPOUSE WERE HIS INCREASED INABILITY TO GET DRESSED HIMSELF DUE TO THE INFECTION IN HIS FEET. SHE IS MOST CONCERNED ABOUT THE CELLULITIS TO HIS FEET THIS HAS CAUSED THE MOST CHANGE TO HIS ABILITY TO CARE FOR HIMSELF. HE IS BEING FOLLOWED BY [facility] AND THEY HAD ATTEMPTED TO SET UP CAREGIVERS A FEW WEEKS AGO BUT SHE HAD FELT LIKE THEY WERE MANAGING OK BUT NOW SHE WOULD WELCOME CARE GIVERS TO ASSIST WITH CARE NEEDS IN THE HOME. PT HAS GRAB BARS, FWW, WALKER, BATH CHAIR, BSC ALREADY IN THE HOME PROVIDED BY [facility]. SUGGESTED A WHEELCHAIR TO BE UTILIZED ALSO UNTIL CELLULITIS IN FEET ARE HEALED. ADVISED PT I WOULD FOLLOW-UP WITH CM TODAY TO DISCUSS THOSE NEEDS. THEY HAD NO FURTHER CONCERNS OR QUESTIONS AT THIS TIME. UPDATED PRIMARY RN AND DR. BAEZA AND SENT MESSAGE TO CM.
[2025-07-08 15:00] VITALS: BP 113/74
--- NOTE | 2025-07-08 19:14 | NUR ---
SHIFT SUMMARY PT A&OX4, VSS, RA, SR 80S ON TELE. SBA TO BATHROOM. BLOOD CULTURE CAME BACK POSITIVE FOR GRAM POSITIVE WITH DUPLOCOCCI. NO REDNESS OR EDEMA NOTED IN FEET. POSSIBLE DISCHARGE TOMORROW. PT PLEASANT AND COOPERATIVE WITH CARE, CALL LIGHT IN REACH.
[2025-07-08 20:31] VITALS: BP 123/77
[2025-07-08] MEDS ORDERED: CefTRIAXone Sodium 1,000 MG in NS 100 ML IV SCH (21:00)
[2025-07-08 23:27] VITALS: BP 114/71
[2025-07-09 04:51] LABS: Hematocrit 27.3 % (37.0-53.0); Hemoglobin 9.0 g/dL (13.5-17.5); Mean Corpuscular HGB Conc 33.0 g/dL (31.5-36.5); Mean Corpuscular Volume 99 fL (80-100); NRBC ABSOLUTE 0.00 K/mm3 (0.00-0.02); NRBC Auto 0.0 /100 WBC (0.0-0.2); Platelet Count 253 K/mm3 (150-400); RDW Coefficient Variation 17.2 % (11.7-14.2); RDW Standard Deviation 62.4 fL (35.1-46.3)
[2025-07-09 05:05] VITALS: BP 114/69
[2025-07-09 08:13] VITALS: BP 120/69
[2025-07-09] MEDS ORDERED: VISBIOME 112.51 EACH PO (13:25)
[2025-07-09] MEDS ORDERED: CEFP200 PO (13:26)
[2025-07-09] MEDS ORDERED: DOXY100 PO (13:27)
--- NOTE | 2025-07-09 14:05 | NUR ---
DISCHARGE INSTRUCTIONS REVIEWED WITH PATIENT AND HIS AND QUESTIONS ANSWERED. PT STATES HAS NEEDED EQUPMENT AT HOME AND HAS A FOLLOW UP PHYSICIAN APPT TOMORROW. PT AND IN AGREEMENT WITH PLAN FOR DISCHARGE. DISCHARGED TO HOME AT 1410
== END 2025-07-09 14:10 | disposition home or self-care (01) ==
LOC: ER 15:19 → ERHOLD 15:20 → MEDS 21:20 → ENPENDDIS 07-09 10:35 → MEDS 07-09 14:10
PROVIDERS: Internal Medicine; Student in an Organized Health Care Education/Training Program; ADMIT Internal Medicine
DX: J18.9 Pneumonia, unspecified organism (principal); C34.90 Malignant neoplasm of unspecified part of unspecified bronchus or lung; L03.115 Cellulitis of right lower limb; L03.116 Cellulitis of left lower limb; A41.9 Sepsis, unspecified organism; D64.9 Anemia, unspecified; E03.9 Hypothyroidism, unspecified; E78.5 Hyperlipidemia, unspecified; I10 Essential (primary) hypertension; Z79.890 Hormone replacement therapy; Z79.899 Other long term (current) drug therapy; Z87.891 Personal history of nicotine dependence; Z92.21 Personal history of antineoplastic chemotherapy
CPT/HCPCS: 36415; 71046; 80053; 83605; 83690; 83880; 85025; 85027; 87040; 87077; 94760; 96365; 96367; 96372; 96376; 99285-25; A9270; G0378; J0456; J0696; J1650; J7030; J7050

== ENCOUNTER 2025-07-21 21:12 | Emergency (ER) | payer OTHER ==
[~2025-07-21] VITALS: Ht 180.3 cm; Wt 80.3 kg
[~2025-07-21 21:12] MED LIST changes: +ACET325 PO; +CEFP200 PO; +DOXY100 PO; +LACT PO
[2025-07-21 22:00] LABS: BASOPHILS ABSOLUTE AUTO 0.14 K/mm3 (0.00-0.23); BASOPHILS PERCENT AUTO 1 % (0-2); EOSINOPHILS ABSOLUTE AUTO 0.18 K/mm3 (0.00-0.68); EOSINOPHILS PERCENT AUTO 1 % (0-6); Hematocrit 39.2 % (37.0-53.0); Hemoglobin 12.3 g/dL (13.5-17.5); IMMATURE GRAN ABSOLUTE AUTO 0.19 K/mm3 (0.00-0.10); IMMATURE GRAN PERCENT AUTO 1 % (0-1); LYMPHOCYTES ABSOLUTE AUTO 1.47 K/mm3 (0.84-5.20); LYMPHOCYTES PERCENT AUTO 11 % (21-46); MONOCYTES ABSOLUTE AUTO 1.85 K/mm3 (0.16-1.47); MONOCYTES PERCENT AUTO 14 % (4-13); Mean Corpuscular HGB Conc 31.4 g/dL (31.5-36.5); Mean Corpuscular Volume 99 fL (80-100); NEUTROPHILS ABSOLUTE AUTO 9.49 K/mm3 (1.96-9.15); NEUTROPHILS PERCENT AUTO 71 % (41-73); NRBC ABSOLUTE 0.00 K/mm3 (0.00-0.02); NRBC Auto 0.0 /100 WBC (0.0-0.2); Platelet Count 195 K/mm3 (150-400); RDW Coefficient Variation 16.3 % (11.7-14.2); RDW Standard Deviation 59.7 fL (35.1-46.3)
[2025-07-21 22:25] LABS: Alanine Aminotransfer (ALT/SGP 26.0 U/L (12-78); Albumin, Blood 3.4 g/dL (3.4-5.0); Albumin/Globulin Ratio 0.8 (0.8-1.8); Anion Gap 13.0 mmol/L (3-11); Aspartate Aminotrans (AST/SGOT 27.0 U/L (12-37); Bilirubin, Total 0.9 mg/dL (0.1-1.0); Blood Urea Nitrogen 13.0 mg/dL (8-24); CO2, Blood 25.0 mmol/L (21-32); Calcium, Blood 9.8 mg/dL (8.5-10.1); Chloride, Blood 104.0 mmol/L (98-108); Creatinine, Blood 0.86 mg/dL (0.60-1.20); Globulin, Blood 4.1 g/dL (2.2-4.0); Glucose, Blood 120.0 mg/dL (70-99); Potassium, Blood 4.0 mmol/L (3.5-5.5); Sodium, Blood 138.0 mmol/L (136-145); Total Protein, Blood 7.5 g/dL (6.4-8.2)
[2025-07-21] MEDS ORDERED: CEFU250T47 PO (23:25)
[2025-07-22 00:20] VITALS: BP 143/84
== END 2025-07-22 00:20 | disposition home or self-care (01) ==
LOC: ER 21:12
PROVIDERS: Student in an Organized Health Care Education/Training Program
DX: L03.115 Cellulitis of right lower limb (principal); D64.9 Anemia, unspecified; I10 Essential (primary) hypertension; E78.5 Hyperlipidemia, unspecified; Z87.891 Personal history of nicotine dependence; Z79.899 Other long term (current) drug therapy
CPT/HCPCS: 80053; 85025; 85379; 93005; 93010; 93971; 99283-25; A9270

== ENCOUNTER 2025-07-24 08:35 | Emergency (ER) | payer OTHER ==
[~2025-07-24] VITALS: Ht 180.3 cm; Wt 80.3 kg
[~2025-07-24 08:35] MED LIST changes: +CEFU250T47 PO
[2025-07-24 09:21] LABS: BASOPHILS ABSOLUTE AUTO 0.09 K/mm3 (0.00-0.23); BASOPHILS PERCENT AUTO 1 % (0-2); EOSINOPHILS ABSOLUTE AUTO 0.09 K/mm3 (0.00-0.68); EOSINOPHILS PERCENT AUTO 1 % (0-6); Hematocrit 34.9 % (37.0-53.0); Hemoglobin 11.1 g/dL (13.5-17.5); IMMATURE GRAN ABSOLUTE AUTO 0.10 K/mm3 (0.00-0.10); IMMATURE GRAN PERCENT AUTO 1 % (0-1); LYMPHOCYTES ABSOLUTE AUTO 0.70 K/mm3 (0.84-5.20); LYMPHOCYTES PERCENT AUTO 8 % (21-46); MONOCYTES ABSOLUTE AUTO 1.45 K/mm3 (0.16-1.47); MONOCYTES PERCENT AUTO 16 % (4-13); Mean Corpuscular HGB Conc 31.8 g/dL (31.5-36.5); Mean Corpuscular Volume 99 fL (80-100); NEUTROPHILS ABSOLUTE AUTO 6.54 K/mm3 (1.96-9.15); NEUTROPHILS PERCENT AUTO 73 % (41-73); NRBC ABSOLUTE 0.00 K/mm3 (0.00-0.02); NRBC Auto 0.0 /100 WBC (0.0-0.2); Platelet Count 119 K/mm3 (150-400); RDW Coefficient Variation 15.9 % (11.7-14.2); RDW Standard Deviation 58.0 fL (35.1-46.3)
[2025-07-24 09:35] LABS: Alanine Aminotransfer (ALT/SGP 17.0 U/L (12-78); Albumin, Blood 3.0 g/dL (3.4-5.0); Albumin/Globulin Ratio 0.8 (0.8-1.8); Anion Gap 8.0 mmol/L (3-11); Aspartate Aminotrans (AST/SGOT 16.0 U/L (12-37); Bilirubin, Total 1.0 mg/dL (0.1-1.0); Blood Urea Nitrogen 9.0 mg/dL (8-24); CO2, Blood 25.0 mmol/L (21-32); Calcium, Blood 9.2 mg/dL (8.5-10.1); Chloride, Blood 106.0 mmol/L (98-108); Creatinine, Blood 0.78 mg/dL (0.60-1.20); Globulin, Blood 3.7 g/dL (2.2-4.0); Glucose, Blood 109.0 mg/dL (70-99); Potassium, Blood 3.8 mmol/L (3.5-5.5); Sodium, Blood 135.0 mmol/L (136-145); Total Protein, Blood 6.7 g/dL (6.4-8.2)
[2025-07-24 10:00] VITALS: BP 139/73
== END 2025-07-24 10:11 | disposition home or self-care (01) ==
LOC: ER 08:35
PROVIDERS: Emergency Medicine
DX: L03.116 Cellulitis of left lower limb (principal); I10 Essential (primary) hypertension; E78.5 Hyperlipidemia, unspecified; E89.0 Postprocedural hypothyroidism; Z87.891 Personal history of nicotine dependence; Z79.890 Hormone replacement therapy; Z79.899 Other long term (current) drug therapy
CPT/HCPCS: 36415; 80053; 83605; 85025; 87040; 99283